=== PATIENT | male | born 1955 | race Caucasian/White ===

== ENCOUNTER → 2023-12-27 13:47 | Outpatient (REF) | payer MEDICARE, OTHER, SELFPAY | LOC: RAD 13:47 | PROVIDERS: ATTENDING PHYSICIAN Nurse Practitioner Primary Care | DX: I25.10 Atherosclerotic heart disease of native coronary artery without angina pectoris (principal); I65.23 Occlusion and stenosis of bilateral carotid arteries | CPT/HCPCS: 93880 ==

== ENCOUNTER 2024-07-03 12:59 | Outpatient (RCR) | payer MEDICARE, OTHER, SELFPAY ==
[2024-06-26] MEDS: INJECTAFER 265 MG IV (13:29)
[2024-06-26 13:44] VITALS: BP 124/76
[2024-06-26 14:25] VITALS: BP 124/51
[2024-07-03 13:06] VITALS: BP 135/63
[2024-07-03] MEDS: INJECTAFER 265 MG IV (13:20)
[2024-07-03 14:16] VITALS: BP 107/72
== END 2024-07-04 11:21 | disposition home or self-care (01) ==
LOC: OID 12:59
PROVIDERS: ATTENDING PHYSICIAN Nurse Practitioner Primary Care
DX: D50.9 Iron deficiency anemia, unspecified (principal); E53.8 Deficiency of other specified B group vitamins; N18.31 Chronic kidney disease, stage 3a; I65.23 Occlusion and stenosis of bilateral carotid arteries; E11.22 Type 2 diabetes mellitus with diabetic chronic kidney disease
CPT/HCPCS: 96365; J1439

== ENCOUNTER → 2024-07-24 13:53 | Outpatient (REF) | payer MEDICARE, OTHER, SELFPAY | LOC: RAD 13:53 | PROVIDERS: ATTENDING PHYSICIAN Surgery Vascular Surgery; FAMILY PHYSICIAN Nurse Practitioner Primary Care | DX: I65.23 Occlusion and stenosis of bilateral carotid arteries (principal) | CPT/HCPCS: 93880 ==

== ENCOUNTER 2024-11-21 06:34 | Day surgery (SDC) | payer MEDICARE, OTHER, SELFPAY ==
[2024-11-21 09:16] LABS: Glucose - Point of Care 111 mg/dl (70-99)
== END 2024-11-21 11:31 | disposition home or self-care (01) ==
LOC: GI 06:34
PROVIDERS: ATTENDING PHYSICIAN Internal Medicine
DX: Z12.11 Encounter for screening for malignant neoplasm of colon (principal); K64.9 Unspecified hemorrhoids; K57.30 Diverticulosis of large intestine without perforation or abscess without bleeding; D12.3 Benign neoplasm of transverse colon; D12.2 Benign neoplasm of ascending colon; D12.0 Benign neoplasm of cecum; D12.4 Benign neoplasm of descending colon; D12.5 Benign neoplasm of sigmoid colon; Z86.0101 Personal history of adenomatous and serrated colon polyps
CPT/HCPCS: 45385; 45380; 88305; 82962

== ENCOUNTER → 2025-01-28 15:26 | Outpatient (REF) | payer MEDICARE, OTHER, SELFPAY | LOC: RAD 15:26 | PROVIDERS: ATTENDING PHYSICIAN Physician Assistant; FAMILY PHYSICIAN Nurse Practitioner Primary Care | DX: I65.23 Occlusion and stenosis of bilateral carotid arteries (principal) | CPT/HCPCS: 93880 ==